=== PATIENT | male | born 2000 | race Caucasian/White ===

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

== ENCOUNTER → 2021-11-26 | Outpatient (CLI) | payer BC ==
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
== END | disposition home or self-care (01) ==
LOC: RADUSWWP 14:48
PROVIDERS: ATTEND Pediatrics
DX: N50.9 Disorder of male genital organs, unspecified (principal)
CPT/HCPCS: 76870; 93975

== ENCOUNTER 2021-12-18 03:03 | Emergency (ER) | payer BC ==
[2021-12-18 03:09] VITALS: BP 130/87; PULSE 102; RESP 20; TEMP 97.8
[2021-12-18] MEDS ORDERED: LIDOCAINE 1% INJ 10MG/ML (5 ML VIAL-PF) SQ STA (03:50)
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
== END 2021-12-18 05:28 | disposition home or self-care (01) ==
LOC: EC 03:03
DX: S01.01XA Laceration without foreign body of scalp, initial encounter (principal); F17.290 Nicotine dependence, other tobacco product, uncomplicated; Z72.89 Other problems related to lifestyle; Y04.8XXA Assault by other bodily force, initial encounter
CPT/HCPCS: 12001; 99283